=== PATIENT | female | born 1950 | race Caucasian/White ===

== ENCOUNTER 2017-08-06 19:16 | Inpatient (IN) | payer OTHER ==
[~2017-08-06] VITALS: Ht 167.6 cm; Wt 76.7 kg
[2017-08-06 19:20] VITALS: BP_SYST 104
[2017-08-06] MEDS ORDERED: NACL 0.9% 1,000 ML IV ONE (20:28)
[2017-08-06] MEDS ORDERED: MORPHINE 2 MG/ML INJ. SYRINGE IVP ONE (20:30)
[2017-08-06 20:50] LABS: BILIRUBIN,URINE NEGATIVE (NEGATIVE); BLOOD, URINE 2+ (NEGATIVE); CLARITY/URINE CLEAR (CLEAR); COLOR,URINE YELLOW (YELLOW); GLUCOSE,URINE NEGATIVE (NEGATIVE); KETONES,URINE NEGATIVE (NEGATIVE); LEUKOCYTE ESTERASE ,URINE NEGATIVE (NEGATIVE); NITRITE, URINE NEGATIVE (NEGATIVE); PROTEIN URINE NEGATIVE (NEGATIVE); UROBILINOGEN,URINE 0.2 (0.2-1.0)
[2017-08-06 20:51] LABS: BASOPHILS # (AUTO) 0.2 K/uL (0.0-0.2); BASOPHILS % (AUTO) 0.9 % (0.0-2.0); EOSINOPHILS % (AUTO) 0.1 % (0.0-4.0); HEMATOCRIT 41.7 % (36-48); HEMOGLOBIN 13.9 g/dL (12.0-16.0); LYMPHOCYTES # (AUTO) 1.8 K/uL (1.0-5.5); MEAN CORPUSCULAR HEMOGLOBIN 31 pg (27-31); MEAN CORPUSCULAR HGB CONC 34 % (32-36); MEAN CORPUSCULAR VOLUME 91 fL (79.0-98.0); MONOCYTES # (AUTO) 1.1 K/uL (0.0-1.0); NEUTROPHILS # (AUTO) 14.7 K/uL (1.8-7.7); PLATELET COUNT (AUTO) 289 K/uL (130-430); RED BLOOD CELL COUNT(AUTO) 4.57 MIL/uL (4.2-6.2); RED CELL DISTRIBUTION WIDTH 13.1 % (9.0-15.0); WHITE BLOOD COUNT (AUTO) 17.8 K/uL (4.8-10.8)
[2017-08-06 21:07] LABS: INR 1.1 (0.8-1.2); PROTHROMBIN TIME 11.3 SECS (9.5-12.5)
[2017-08-06 21:09] LABS: BACTERIA,URINE FEW /HPF (None Seen); MUCUS,URINE 1+ /LPF (None Seen)
[2017-08-06 21:09] LABS: CALCIUM 7.3 mg/dL (8.4-11.0); CREATININE 0.73 mg/dL (0.55-1.30); POTASSIUM 3.4 mmol/L (3.5-5.1)
[2017-08-06 21:14] LABS: ALBUMIN 3.6 g/dL (3.4-4.8); TOTAL BILIRUBIN 1.5 mg/dL (0.0-1.0)
[2017-08-06] MEDS ORDERED: IOHEXOL 100 ML IV ONE (21:34)
[2017-08-06] MEDS ORDERED: metroNIDAZOLE 500 mg/NS 100 ML IV ONE (23:00)
[2017-08-06] MEDS ORDERED: ASPI-1063 PO (23:13)
[2017-08-06] MEDS ORDERED: ALEN10TA6 PO (23:13)
[2017-08-06] MEDS ORDERED: LIP20 PO (23:13)
[2017-08-06] MEDS ORDERED: LEVOFLOXACIN 500 MG/D5W 100 ML IV ONE (23:30)
[2017-08-06] MEDS ORDERED: ONDANSETRON HCL 4 MG/2 ML VIAL IVP PRN (23:30)
[2017-08-06] MEDS ORDERED: MORPHINE 2 MG/ML INJ. SYRINGE IVP PRN (23:30)
[2017-08-06] MEDS ORDERED: INSULIN REGULAR, HUMAN 100 UNITS/ML, 10 ML VIAL (novoLIN R) SUBCUT PRN (23:30)
[2017-08-07] VITALS (7 sets, daily range): BP systolic 100–124
[2017-08-07] MEDS ORDERED: metroNIDAZOLE 500 mg/NS 100 ML IV ONE (01:18)
[2017-08-07] MEDS: metroNIDAZOLE 500 mg/NS 100 ML IV SCH ×3 (06:18→17:35)
[2017-08-07 08:09] LABS: BASOPHILS % (AUTO) 0.3 % (0.0-2.0); EOSINOPHILS % (AUTO) 0.3 % (0.0-4.0); HEMATOCRIT 39.8 % (36-48); HEMOGLOBIN 13.5 g/dL (12.0-16.0); LYMPHOCYTES # (AUTO) 1.2 K/uL (1.0-5.5); LYMPHOCYTES % (AUTO) 8.6 % (20.5-51.5); MEAN CORPUSCULAR HEMOGLOBIN 31 pg (27-31); MEAN CORPUSCULAR HGB CONC 34 % (32-36); MEAN CORPUSCULAR VOLUME 93 fL (79.0-98.0); MONOCYTES # (AUTO) 0.8 K/uL (0.0-1.0); NEUTROPHILS # (AUTO) 11.7 K/uL (1.8-7.7); NEUTROPHILS % (AUTO) 84.8 % (40.0-70.0); PLATELET COUNT (AUTO) 260 K/uL (130-430); RED BLOOD CELL COUNT(AUTO) 4.31 MIL/uL (4.2-6.2); RED CELL DISTRIBUTION WIDTH 13.5 % (9.0-15.0); WHITE BLOOD COUNT (AUTO) 13.7 K/uL (4.8-10.8)
[2017-08-07 08:10] LABS: CALCIUM 7.1 mg/dL (8.4-11.0); CREATININE 0.57 mg/dL (0.55-1.30); POTASSIUM 3.5 mmol/L (3.5-5.1)
[2017-08-07 08:15] LABS: TOTAL BILIRUBIN 1.2 mg/dL (0.0-1.0)
[2017-08-07] MEDS ORDERED: D5/0.45 NS 1,000 ML IV SCH (09:00)
[2017-08-07] MEDS: PANTOPRAZOLE SODIUM 40 MG/VIAL (PROTONIX) IVP SCH (10:30)
[2017-08-07] MEDS ORDERED: NS 1000 ML BAG IV ONE (14:16)
[2017-08-07] MEDS ORDERED: LR 1,000 ML IV.SOLN IV ONE (14:16)
[2017-08-07] MEDS ORDERED: PROPOFOL 200MG/ 20ML VIAL (DIPRIVAN) IV ONE (14:16)
[2017-08-07] MEDS ORDERED: METOCLOPRAMIDE HCL 10 MG/2 ML VIAL IVP ONE (14:16)
[2017-08-07] MEDS ORDERED: NEOSTIGMINE METHYLSULFATE 1 MG/ML, 10 ML VIAL IVP ONE (14:16)
[2017-08-07] MEDS ORDERED: NS IRRIG SOLN 1000 ML IR ONE (14:16)
[2017-08-07] MEDS ORDERED: SEVOFLURANE 15 MIN GAS INH ONE (14:16)
[2017-08-07] MEDS ORDERED: MIDAZOLAM HCL 5 MG/5 ML VIAL IVP ONE (14:16)
[2017-08-07] MEDS ORDERED: BUPIVACAINE /EPINEPHRINE/PF 0.25% 30 ML VIAL INJ ONE (14:16)
[2017-08-07] MEDS ORDERED: DEXAMETHASONE SOD PHOSPHATE 4 MG/ML VIAL IVP ONE (14:16)
[2017-08-07] MEDS ORDERED: fentaNYL CITRATE 250 MCG/5 ML AMP IV ONE (14:16)
[2017-08-07] MEDS ORDERED: KETOROLAC TROMETHAMINE 30 MG VIAL IVP ONE (14:16)
[2017-08-07] MEDS ORDERED: GLYCOPYRROLATE 0.2 MG/ML VIAL IJ ONE (14:16)
[2017-08-07] MEDS ORDERED: LR 1,000 ML IV ONE (14:52)
[2017-08-07] MEDS ORDERED: fentaNYL CITRATE/PF 100 MCG/2 ML AMP IVP PRN (15:00)
[2017-08-07] MEDS ORDERED: ONDANSETRON HCL 4 MG/2 ML VIAL IVP PRN ×3 (15:00→16:00)
[2017-08-07] MEDS ORDERED: NALBUPHINE HCL 10 MG/ML AMP IVP PRN (15:00)
[2017-08-07] MEDS ORDERED: ePHEDrine sulfate 50 MG/ML VIAL IVP PRN (15:00)
[2017-08-07] MEDS ORDERED: NALOXONE HCL 0.4 MG/ML AMP (NARCAN) IVP PRN (15:00)
[2017-08-07] MEDS ORDERED: DIPHENHYDRAMINE INJ 50 MG/ML VIAL IVP PRN (15:00)
[2017-08-07] MEDS ORDERED: HYDROmorphone 1 MG INJ. 1 MG/ML AMPUL IVP PRN (16:00)
[2017-08-07] MEDS: NACL 0.9% 1,000 ML IV SCH (18:11)
[2017-08-07] MEDS: LEVOFLOXACIN 500 MG/D5W 100 ML IV SCH (21:43)
[2017-08-08] VITALS (7 sets, daily range): BP systolic 107–121
[2017-08-08] MEDS: metroNIDAZOLE 500 mg/NS 100 ML IV SCH (00:59)
[2017-08-08] MEDS: NACL 0.9% 1,000 ML IV SCH ×2 (05:51→18:05)
[2017-08-08 06:47] LABS: BASOPHILS % (AUTO) 0.1 % (0.0-2.0); EOSINOPHILS % (AUTO) 0.1 % (0.0-4.0); HEMATOCRIT 38.1 % (36-48); HEMOGLOBIN 12.9 g/dL (12.0-16.0); LYMPHOCYTES # (AUTO) 0.6 K/uL (1.0-5.5); LYMPHOCYTES % (AUTO) 4.5 % (20.5-51.5); MEAN CORPUSCULAR HEMOGLOBIN 32 pg (27-31); MEAN CORPUSCULAR HGB CONC 34 % (32-36); MEAN CORPUSCULAR VOLUME 94 fL (79.0-98.0); MONOCYTES # (AUTO) 0.5 K/uL (0.0-1.0); MONOCYTES % (AUTO) 3.4 % (1.7-9.3); NEUTROPHILS # (AUTO) 12.3 K/uL (1.8-7.7); NEUTROPHILS % (AUTO) 91.9 % (40.0-70.0); PLATELET COUNT (AUTO) 292 K/uL (130-430); RED BLOOD CELL COUNT(AUTO) 4.07 MIL/uL (4.2-6.2); WHITE BLOOD COUNT (AUTO) 13.4 K/uL (4.8-10.8)
[2017-08-08 06:58] LABS: ALBUMIN 2.7 g/dL (3.4-4.8); CALCIUM 7.1 mg/dL (8.4-11.0); CREATININE 0.58 mg/dL (0.55-1.30); POTASSIUM 3.7 mmol/L (3.5-5.1); TOTAL BILIRUBIN 0.8 mg/dL (0.0-1.0)
[2017-08-08] MEDS: PANTOPRAZOLE SODIUM 40 MG/VIAL (PROTONIX) IVP SCH (09:30)
[2017-08-08] MEDS: LEVOFLOXACIN 500 MG/D5W 100 ML IV SCH (20:05)
[2017-08-09] VITALS (7 sets, daily range): BP systolic 124–148
[2017-08-09] MEDS: NACL 0.9% 1,000 ML IV SCH (03:26)
[2017-08-09 06:39] LABS: BASOPHILS % (AUTO) 0.2 % (0.0-2.0); EOSINOPHILS % (AUTO) 0.2 % (0.0-4.0); HEMATOCRIT 36.3 % (36-48); HEMOGLOBIN 12.2 g/dL (12.0-16.0); LYMPHOCYTES # (AUTO) 1.3 K/uL (1.0-5.5); LYMPHOCYTES % (AUTO) 13.8 % (20.5-51.5); MEAN CORPUSCULAR HEMOGLOBIN 31 pg (27-31); MEAN CORPUSCULAR HGB CONC 34 % (32-36); MEAN CORPUSCULAR VOLUME 94 fL (79.0-98.0); MONOCYTES # (AUTO) 0.4 K/uL (0.0-1.0); MONOCYTES % (AUTO) 4.9 % (1.7-9.3); NEUTROPHILS # (AUTO) 7.4 K/uL (1.8-7.7); NEUTROPHILS % (AUTO) 80.9 % (40.0-70.0); PLATELET COUNT (AUTO) 315 K/uL (130-430); RED BLOOD CELL COUNT(AUTO) 3.88 MIL/uL (4.2-6.2); RED CELL DISTRIBUTION WIDTH 13.2 % (9.0-15.0); WHITE BLOOD COUNT (AUTO) 9.1 K/uL (4.8-10.8)
[2017-08-09 07:08] LABS: ALBUMIN 2.4 g/dL (3.4-4.8); CREATININE 0.45 mg/dL (0.55-1.30); POTASSIUM 3.7 mmol/L (3.5-5.1); TOTAL BILIRUBIN 0.5 mg/dL (0.0-1.0)
[2017-08-09 07:39] LABS: CALCIUM 6.5 mg/dL (8.4-11.0)
[2017-08-09] MEDS: PANTOPRAZOLE SODIUM 40 MG/VIAL (PROTONIX) IVP SCH (08:36)
[2017-08-09] MEDS ORDERED: ACETAMINOPHEN/CODEINE 300 MG-30 MG TABLET PO PRN (10:00)
[2017-08-09] MEDS ORDERED: CALCIUM GLUCONATE 1 GM in NS 100 ML IV ONE (10:15)
[2017-08-09] MEDS ORDERED: CALCIUM CARBONATE/VITAMIN D3 1 TAB TABLET PO ONE (10:30)
[2017-08-09] MEDS: LEVOFLOXACIN 500 MG/D5W 100 ML IV SCH (22:10)
[2017-08-09] MEDS: CALCIUM CARBONATE/VITAMIN D3 1 TAB TABLET PO SCH (22:10)
[2017-08-10 04:00] VITALS: BP_SYST 123
[2017-08-10 07:25] LABS: BASOPHILS % (AUTO) 0.8 % (0.0-2.0); EOSINOPHILS # (AUTO) 0.3 K/uL (0.0-0.4); EOSINOPHILS % (AUTO) 4.5 % (0.0-4.0); HEMATOCRIT 38.3 % (36-48); LYMPHOCYTES # (AUTO) 1.5 K/uL (1.0-5.5); LYMPHOCYTES % (AUTO) 25.4 % (20.5-51.5); MEAN CORPUSCULAR HEMOGLOBIN 31 pg (27-31); MEAN CORPUSCULAR HGB CONC 34 % (32-36); MEAN CORPUSCULAR VOLUME 93 fL (79.0-98.0); MONOCYTES # (AUTO) 0.5 K/uL (0.0-1.0); MONOCYTES % (AUTO) 9.1 % (1.7-9.3); NEUTROPHILS # (AUTO) 3.5 K/uL (1.8-7.7); NEUTROPHILS % (AUTO) 60.2 % (40.0-70.0); PLATELET COUNT (AUTO) 344 K/uL (130-430); RED BLOOD CELL COUNT(AUTO) 4.14 MIL/uL (4.2-6.2); RED CELL DISTRIBUTION WIDTH 13.5 % (9.0-15.0); WHITE BLOOD COUNT (AUTO) 5.8 K/uL (4.8-10.8)
[2017-08-10 07:51] LABS: ALBUMIN 2.6 g/dL (3.4-4.8); CALCIUM 7.4 mg/dL (8.4-11.0); CREATININE 0.61 mg/dL (0.55-1.30); POTASSIUM 3.6 mmol/L (3.5-5.1); TOTAL BILIRUBIN 0.6 mg/dL (0.0-1.0)
[2017-08-10 08:00] VITALS: BP_SYST 134
[2017-08-10] MEDS: CALCIUM CARBONATE/VITAMIN D3 1 TAB TABLET PO SCH (08:33)
[2017-08-10] MEDS: PANTOPRAZOLE SODIUM 40 MG/VIAL (PROTONIX) IVP SCH (08:33)
[2017-08-10 12:00] VITALS: BP_SYST 170
[2017-08-10 17:38] VITALS: BP_SYST 114
[2017-08-10 18:16] VITALS: BP_SYST 114
== END 2017-08-10 18:45 | disposition home health service (06) | DRG 331 ==
LOC: SED 19:16 → SMU 23:25
PROVIDERS: ADMIT Internal Medicine Hospice and Palliative Medicine; ATTEND Internal Medicine Hospice and Palliative Medicine
PROC: 0DBE4ZZ Excision of Large Intestine, Percutaneous Endoscopic Approach (ICD-10-PCS; 2017-08-07)
PROC: 0DTJ4ZZ Resection of Appendix, Percutaneous Endoscopic Approach (ICD-10-PCS; principal; 2017-08-07 14:00)
DX: K37 Unspecified appendicitis (principal); E11.9 Type 2 diabetes mellitus without complications; K63.89 Other specified diseases of intestine; E78.00 Pure hypercholesterolemia, unspecified; I10 Essential (primary) hypertension; M81.0 Age-related osteoporosis without current pathological fracture; Z79.899 Other long term (current) drug therapy; Z90.710 Acquired absence of both cervix and uterus; Z88.0 Allergy status to penicillin
CPT/HCPCS: 36415; 71010; 80053; 81000-TC; 82962; 83605; 83690-TC; 85025; 85610-TC; 87040-TC; 87070; 87070-TC; 87075-TC; 87081; 87086; 88304; 88305; 94010; 96361; 96365; 96367; 96375; 97116-GP; 99285; C1727; C9113; J0610; J1100; J1170; J1815; J1885; J1956; J2250; J2270; J2405; J2704; J2710; J2765; J3010; J3490; J7030; J7120; Q9967

== ENCOUNTER 2022-07-17 18:30 | Emergency (ER) | payer OTHER ==
[~2022-07-17] VITALS: Ht 165.1 cm; Wt 63.5 kg
[~2022-07-17 18:30] MED LIST: ALEN10TA25 PO; ASPI-1393 PO; LIP20 PO
[2022-07-17 18:40] VITALS: BP_SYST 140
[2022-07-17] MEDS ORDERED: MECL-261 PO (19:14)
[2022-07-17 19:18] VITALS: BP_SYST 145
== END 2022-07-17 19:18 | disposition home or self-care (01) ==
LOC: SED 18:30
DX: R42 Dizziness and giddiness (principal); R00.2 Palpitations; E11.9 Type 2 diabetes mellitus without complications; Z88.0 Allergy status to penicillin; Z79.899 Other long term (current) drug therapy
CPT/HCPCS: 99282